=== PATIENT | male | born 1935 | race Caucasian/White ===

== ENCOUNTER 2017-07-20 05:22 | Day surgery (SDC) | payer MEDICARE ==
[~2017-07-20] VITALS: Ht 185.4 cm; Wt 86.2 kg
[~2017-07-20 05:22] MED LIST: ADVAIR DISK1 INH; ALBUTEROL SUL0.083 % IN; AMITRIPTYLIN25 MG PO; FOLIC ACID1 M1; HYDROXYZINE HCL25 M1 PO; LEVOTHYROXINE125 MCG PO; MORPHINE SUL60 MG PO; TRAZODONE100 MG PO; ZOCOR20 M1 PO
[2017-07-20 07:38] VITALS: BP 119/56
== END 2017-07-20 09:05 | disposition home or self-care (01) ==
LOC: ORM 05:22
PROVIDERS: ATTEND Anesthesiology Pain Medicine
PROC: 3E0T33Z Introduction of Anti-inflammatory into Peripheral Nerves and Plexi, Percutaneous Approach (ICD-10-PCS; principal; 2017-07-20)
PROC: 3E0T3BZ Introduction of Anesthetic Agent into Peripheral Nerves and Plexi, Percutaneous Approach (ICD-10-PCS; 2017-07-20)
DX: M54.2 Cervicalgia (principal); M47.812 Spondylosis without myelopathy or radiculopathy, cervical region

== ENCOUNTER 2017-08-03 09:42 | Day surgery (SDC) | payer MEDICARE ==
[~2017-08-03] VITALS: Ht 185.4 cm; Wt 84.8 kg
[2017-08-03 12:00] VITALS: BP 126/61
== END 2017-08-03 12:15 | disposition home or self-care (01) ==
LOC: ORM 09:42
PROVIDERS: ATTEND Anesthesiology Pain Medicine
PROC: 3E0T3BZ Introduction of Anesthetic Agent into Peripheral Nerves and Plexi, Percutaneous Approach (ICD-10-PCS; principal; 2017-08-03)
PROC: 3E0T33Z Introduction of Anti-inflammatory into Peripheral Nerves and Plexi, Percutaneous Approach (ICD-10-PCS; 2017-08-03)
DX: M54.2 Cervicalgia (principal)

== ENCOUNTER → 2017-09-07 | Day surgery (SDC) | payer MEDICARE ==
[~2017-09-07] VITALS: Ht 188 cm; Wt 83.9 kg
[2017-09-07 10:05] VITALS: BP 115/55
== END | disposition home or self-care (01) ==
LOC: ORM 07:12
PROVIDERS: ATTEND Anesthesiology Pain Medicine
PROC: 3E0T3TZ Introduction of Destructive Agent into Peripheral Nerves and Plexi, Percutaneous Approach (ICD-10-PCS; principal; 2017-09-07)
DX: M47.814 Spondylosis without myelopathy or radiculopathy, thoracic region (principal)

== ENCOUNTER 2017-09-21 07:45 | Day surgery (SDC) | payer MEDICARE ==
[~2017-09-21] VITALS: Ht 188 cm; Wt 81.6 kg
[2017-09-21 10:13] VITALS: BP 105/55
== END 2017-09-21 10:00 | disposition home or self-care (01) ==
LOC: ORM 07:45
PROVIDERS: ATTEND Anesthesiology Pain Medicine
PROC: 3E0T3TZ Introduction of Destructive Agent into Peripheral Nerves and Plexi, Percutaneous Approach (ICD-10-PCS; principal; 2017-09-21)
DX: M54.6 Pain in thoracic spine (principal)